=== PATIENT | male | born 1985 | race Caucasian/White ===

== ENCOUNTER 2021-03-06 16:56 | Emergency (ER) | payer SELFPAY ==
[~2021-03-06] VITALS: Ht 188 cm; Wt 90.0 kg
[2021-03-06] MEDS ORDERED: TETRACAINE 0.5% OPHTH SOLUTION 4ML BOTTLE. OS ONE ×2 (18:30→19:30)
[2021-03-06] MEDS ORDERED: FLUORESCEIN 1MG EYE STRIP. OS ONE ×3 (18:30→19:30)
[2021-03-06] MEDS ORDERED: prednisoLONE ACETATE 1% OPHTH SUSPENSION 5ML BOTTLE. OS ONE (20:30)
[2021-03-06] MEDS ORDERED: HYDROcodone/APAP 5/325MG 1 TAB TABLET PO ONE (20:30)
[2021-03-06] MEDS ORDERED: ERYTHROMYCIN 0.5% OPHTH OINTMENT 1GM TUBE. OS ONE (20:30)
[2021-03-06] MEDS ORDERED: DIPH,PERTUSS(ACELL),TET VAC/PF 0.5 ML SYRINGE. VAX IM ONE (20:45)
[2021-03-06] MEDS ORDERED: PRED5DRO16 LEFTEYE (20:49)
[2021-03-06] MEDS ORDERED: ERYT1OIN6 OP (20:49)
[2021-03-06] MEDS ORDERED: HYDR-2155 PO (20:50)
--- NOTE | 2021-03-06 20:52 | PHYS DOC ---
Past History Past Medical History: No Pertinent History Past Surgical History: No Surgical History Smoking: Cigarettes, Less than 1pk/day Alcohol Use: None Drug Use: None General Adult EDM: Chief Complaint: EYE PROBLEMS HPI: HPI: Patient is a 35-year-old male who presents with pain to his left eye. Patient s tates he was mowing the grass when he hit a tree branch. "I am not sure if the branch went into the corner of my eye or not". Patient states he woke up this morning with his eyes matted shut. Increase in pain with lights and movement of his eye. Eye is watering. Denies diplopia. Denies visual changes . unknown last tetanus. Review of Systems: Review of Systems: Constitutional: Denies fever or chills Eyes: Denies change in visual acuity, reports watering and discharge from eyes HENT: Denies nasal congestion or sore throat Respiratory: Denies cough or shortness of breath Cardiovascular: Denies chest pain or edema GI: Denies abdominal pain, nausea, vomiting, bloody stools or diarrhea : Denies dysuria Musculoskeletal: Denies back pain or joint pain Integument: Denies rash Neurologic: Denies headache, focal weakness or sensory changes Endocrine: Denies polyuria or polydipsia Lymphatic: Denies swollen glands Psychiatric: Denies depression or anxiety Current Medications: Current Meds: Current Medications Medications (Trade) Dose Ordered Sig/Tess Start Time Stop Time Status Last Admin Dose Admin Fluorescein Sodium (Ful-Franchesca 1mg) 1 strip 1X ONCE 03/06/21 19:30 03/06/21 19:52 DC 03/06/21 19:33 1 STRIP Tetracaine HCl (Tetracaine) 1 drop 1X ONCE 03/06/21 19:30 03/06/21 19:52 DC 03/06/21 19:34 1 DROP Allergies: Allergies: Allergies Coded Allergies Type Severity Reaction Last Updated Verified No Known Drug Allergies 02/14/15 No Physical Exam: PE: Constitutional: Well developed, well nourished, no acute distress, non-toxic appearance. [] HENT: Normocephalic, atraumatic, bilateral external ears normal, oropharynx moist, no oral exudates, nose normal. [] Eyes: PERRLA, watering, discharge, pain with movement, corneal ulcer , No teardrop sign, no hyphema Neck: Normal range of motion, no tenderness, supple, no stridor. [] Cardiovascular:Heart rate regular rhythm, no murmur [] Lungs & Thorax: Bilateral breath sounds clear to auscultation [] Abdomen: Bowel sounds normal, soft, no tenderness, no masses, no pulsatile masses. [] Skin: Warm, dry, no erythema, no rash. [] Back: No tenderness, no CVA tenderness. [] Extremities: No tenderness, no cyanosis, no clubbing, ROM intact, no edema. [] Neurologic: Alert and oriented X 3, normal motor function, normal sensory function, no focal deficits noted. [] Psychologic: Affect normal, judgement normal, mood normal. [] Current Patient Data: Vital Signs: Vital Signs Date Time Temp Pulse Resp B/P (MAP) Pulse Ox O2 Delivery O2 Flow Rate FiO2 03/06/21 17:09 98.3 73 15 143/106 99 Room Air EKG: EKG: [] Radiology/Procedures: Radiology/Procedures: [] Heart Score: C/O Chest Pain: No Risk Factors: Risk Factors: DM, Current or recent (<one month) smoker, HTN, HLP, family history of CAD, obesity. Risk Scores: Score 0 - 3: 2.5% MACE over next 6 weeks - Discharge Home Score 4 - 6: 20.3% MACE over next 6 weeks - Admit for Clinical Observation Score 7 - 10: 72.7% MACE over next 6 weeks - Early Invasive Strategies Course & Med Decision Making: Course & Med Decision Making Pertinent Labs and Imaging studies reviewed. (See chart for details) [] 35-year-old male presents with left eye pain after being hit in the eye with a tree branch. Patient complains of pain with movement, discharge from eye. No teardrop sign, no hyphema, denies visual changes or diplopia. Corneal ulcer is seen on physical exam with the Feng lamp. Unknown last tetanus. Patient given Adacel, erythromycin ointment, Prednisolone Acetate, and hydrocodone for pain. Patient given referral to career information specialist and given instructions to call tomorrow for follow-up. Patient is appreciative and okay with discharge plan. Dragon Disclaimer: Dragon Disclaimer: This electronic medical record was generated, in whole or in part, using a voice recognition dictation system. Departure Departure: Impression: Primary Impression: Corneal ulcer of left eye Disposition: HOME / SELF CARE / HOMELESS Condition: STABLE Referrals: PCP,NO (PCP) Patient Instructions: Corneal Ulcer Additional Instructions: You were seen in the emergency room for eye trauma. Your physical exam showed a corneal ulcer. I am sending you home with medication to help with pain and prevent infection. You also received tetanus. I am also attaching the career information specialist that you should follow up with. Please call tomorrow to make an appointment. Return to the emergency room if you have worsening symptoms or concerns. Dr. Wick [phone] EMERGENCY DEPARTMENT GENERAL DISCHARGE INSTRUCTIONS Thank you for coming to [facility] (ED) today and trusting us with you care. We trust that you had a positivie experience in our Emergency Department. If you wish to speak to the department management, you may call the director at [phone]. YOUR FOLLOW UP INSTRUCTIONS ARE FOLLOWS: 1. Do you have a private Doctor? If you do not have a private doctor, please ask for a resource list of physicians or clinics that may be able to assist you with follow up care. 2. The Emergency Physician has interpreted your x-rays. The X-Ray specialist will also review them. If there is a change in the findings, you will be notified in 48 hours when at all possible. 3. A lab test or culture has been done, your results will be reviewed and you will be notified if you need a change in treatment. ADDITIONAL INSTRUCTIONS AND INFORMATION: 1. Your care today has been supervised by a physician who is specially trained in emergency care. Many problems require more than one evaluation for a complete diagnosis and treatment. We recommend that you schedule your follow up appointment as recommended to ensure complete treatment of you illness or injury. If you are unable to obtain follow up care and continue to have a problem, or if your condition worsens, we recommend that you return to the ED. 2. We are not able to safely determine your condition over the phone nor are we able to give sound medical advice over the phone. For these safety reasons, if you call for medical advice we will ask you to come to the ED for further evaluation. 3. If you have any questions regarding these discharge instructions please call the ED at [phone]. SAFETY INFORMATION: In the interest of safety, wellness, and injury prevention; we encourage you to wear your sealbelt, if you smoke; quite smoking, and we encourage family to use a protective helmet for bicycling and other sporting events that present an increased risk for head injury. IF YOUR SYMPTOMS WORSEN OR NEW SYMPTOMS DEVELOP, OR YOU HAVE CONCERNS ABOUT YOUR CONDITION; OR IF YOUR CONDITION WORSENS WHILE YOU ARE WAITING FOR YOUR FOLLOW UP APPOINTMENT; EITHER CONTACT YOUR PRIMARY CARE DOCTOR, THE PHYSICIAN WHOSE NAME AND NUMBER YOU WERE GIVEN, OR RETURN TO THE ED IMMEDIATELY. Scripts Hydrocodone Bit/Acetaminophen (HYDROCODONE-APAP 5-325 ) 1 Each Tablet 1 TAB PO PRN Q6HRS PRN for PAIN for 3 Days, #12 TAB 0 Refills Prov: LONNY ESCUDERO APRN 03/06/21 Prednisolone Acetate (PREDNISOLONE ACETATE) 5 Ml Drops.susp 1 DROP LEFTEYE QID for CORNEAL ULCER for 10 Days, #10 ML 0 Refills Prov: LONNY ESCUDERO APRN 03/06/21 Erythromycin Base (Erythromycin) 1 Gm Oint...g. 1 GM OP TID for CORNEAL ULCER for 7 Days, #1 MISC Prov: LONNY ESCUDERO APRN 03/06/21 LONNY ESCUDERO APRN Mar 06, 2021 20:52
[2021-03-06 20:59] VITALS: BP 136/84
== END 2021-03-06 20:59 | disposition home or self-care (01) ==
LOC: ER 16:56
DX: H16.002 Unspecified corneal ulcer, left eye (principal); F17.210 Nicotine dependence, cigarettes, uncomplicated
CPT/HCPCS: 90471; 90715; 99284